=== PATIENT | female | born 1970 | race Caucasian/White ===

== ENCOUNTER → 2017-01-02 | Day surgery (SDC) | payer BC ==
[~2017-01-02] VITALS: Ht 166.4 cm; Wt 141.0 kg
[~2017-01-02] MED LIST: BECL1AER5 NAE; CALC-354 PO; CALC1CHW PO; CHOL200010 PO; CITA40TA12 PO; CYAN100048 PO; DICY20TA10 PO; HYD50 PEG; LEVO1TAB PO; MULT-506 PO; OMEP40CA36 PO; VNTHFA/IN
[2017-01-02 08:29] VITALS: BP 136/83; PULSE 67; TEMP 36.6; O2SAT 97; Ht 166.4 cm; Wt 141.0 kg
[2017-01-02 11:45] VITALS: BP 143/82; PULSE 60; TEMP 36.7; O2SAT 97
--- NOTE | 2017-01-09 13:36 | Procedure Note ---
Breath Hydrogen Test Interpretation Lactose Breath Test After ingestion of 25 grams of lactose, Hydrogen levels were measured at baseline, 60, 120 and 180 minutes for elevation. Results: A rise in hydrogen concentration of 20 ppm over baseline is considered diagnostic of lactose malabsorption Patients response Baseline 0 ppm 180 minutes 32 ppm CO2 Patient reports no symptoms. Recommendations: Return to referring Positive lactose breath test. Avoid Lactose.
== END | disposition home or self-care (01) ==
LOC: C.MTU 08:23
PROVIDERS: ATTEND Internal Medicine
DX: K58.0 Irritable bowel syndrome with diarrhea (principal)

== ENCOUNTER 2024-06-25 05:51 | Observation (INO) ==
--- NOTE | 2024-06-16 11:02 | Anesthesiology Consultation ---
Date of Service June 16, 2024 Assessment & Plan (1) Encounter for pre-operative examination: Plan - check BSG am DOS. - semaglutide instructions: Patient informed by PAT RN to stop 7 days prior to surgery. - Per marketing production specialist on 06/16/24: No known infectious disease contacts, current infectious disease symptoms in past 10 days or COVID positive test result in the past 30 days. Chart Review Chart Review: Acceptable Risk for Surgery and Patient NOT seen in Pre Admission Testing History Surgery Operation Date: 06/25/24 07:30 Proposed Procedures p Revision of Panniculectomy and - Romana Garza MD s Bilateral Brachioplasty - Romana Garza MD Height/Weight Height: 5 ft 4 in Weight: 95.254 kg Allergies Allergy/AdvReac Type Severity Reaction Status Date / Time ibuprofen Allergy Intermediate FROM MED Verified 06/16/24 10:11 RECORD acetaminophen [From Percocet] Allergy Mild Hives Verified 06/16/24 10:11 adhesive tape Allergy Mild Rash Verified 06/16/24 10:11 latex Allergy Mild Rash Verified 06/16/24 10:11 morphine Allergy Mild Hives Verified 06/16/24 10:11 ondansetron [From Zofran] Allergy Mild Hives Verified 06/16/24 10:11 oxycodone Allergy Mild FROM MED Verified 06/16/24 10:11 RECORD Sulfa (Sulfonamide Allergy Mild Hives Verified 06/16/24 10:11 Antibiotics) terfenadine Allergy Mild FROM MED Verified 06/16/24 10:11 RECORD asprin Allergy Mild Hives Uncoded 06/16/24 10:11 Medications Home Medications Medication Instructions Recorded Confirmed Last Taken acetaminophen 500 mg tablet 500 mg PO Q6H PRN Pain 07/05/23 06/16/24 Unknown (Tylenol Extra Strength) albuterol sulfate 90 mcg/actuation 2 puff inhalation Q4H PRN 07/05/23 06/16/24 Unknown aerosol inhaler sob/wheezing allopurinol 300 mg tablet 300 mg PO QAM 07/05/23 06/16/24 Unknown baclofen 10 mg tablet 10 mg PO TID PRN Pain (Scale Score 07/05/23 06/16/24 Unknown 1-3) beclomethasone dipropionate 80 1 inh inhalation BID 07/05/23 06/16/24 Unknown mcg/actuation HFA breath activated aerosol calcium 600 mg (as 1 cap PO DAILY 07/05/23 06/16/24 Unknown carbonate)-vitamin D3 5 mcg (200 unit) capsule cholecalciferol (vitamin D3) 25 25 mcg PO DAILY 07/05/23 06/16/24 Unknown mcg (1,000 unit) tablet dicyclomine 20 mg tablet 20 mg PO QID PRN Diarrhea 07/05/23 06/16/24 Unknown docusate sodium 100 mg capsule 100 mg PO BID 07/05/23 06/16/24 Unknown ferrous sulfate 325 mg (65 mg 325 mg PO DAILY 07/05/23 06/16/24 Unknown iron) tablet furosemide 40 mg tablet 40 mg PO QAM 07/05/23 06/16/24 Unknown hydroxyzine HCl 50 mg tablet 50 mg PO HS 07/05/23 06/16/24 Unknown lactase 3,000 unit tablet 3,000 unit PO TID 07/05/23 06/16/24 Unknown lactobacillus combination no.4 3 3,000 mmu cells PO DAILY 07/05/23 06/16/24 Unknown billion cell capsule (Probiotic) levothyroxine 137 mcg tablet 137 mcg PO QAM 07/05/23 06/16/24 Unknown lidocaine 4 % topical patch 1 patch topical DAILY PRN Pain 07/05/23 06/16/24 Unknown mecobalamin (vitamin B12) 1,000 1,000 mcg PO DAILY 07/05/23 06/16/24 Unknown mcg chewable tablet metformin 500 mg tablet,extended 500 mg PO BID 07/05/23 06/16/24 Unknown release 24 hr multivitamin 1 tab PO DAILY 07/05/23 06/16/24 Unknown omeprazole 20 mg capsule,delayed 20 mg PO QAM 07/05/23 06/16/24 Unknown release polyethylene glycol 3350 17 gram 17 g PO DAILY PRN Constipation 07/05/23 06/16/24 Unknown oral powder packet (Miralax) potassium gluconate 600 mg (99 mg) 600 mg PO DAILY 07/05/23 06/16/24 Unknown tablet pseudoephedrine HCl 30 mg tablet 30 mg PO Q6H PRN sinus congestion 07/05/23 06/16/24 Unknown (Sudafed) rosuvastatin 10 mg tablet 10 mg PO QAM 07/05/23 06/16/24 Unknown semaglutide 1 mg/dose (4 mg/3 mL) 3 mg subcut ONCE 07/05/23 06/16/24 Unknown subcutaneous pen injector (Ozempic) sertraline 25 mg tablet 25 mg PO DAILY 07/05/23 06/16/24 Unknown trazodone 100 mg tablet 100 mg PO HS 07/05/23 06/16/24 Unknown triamcinolone acetonide 0.5 % 1 applic topical BID PRN Rash 07/05/23 06/16/24 Unknown topical cream hydrocodone 5 mg-acetaminophen 325 1 tab PO Q4H PRN pain #18 tabs 06/09/24 06/09/24 Unknown mg tablet melatonin 10 mg tablet 10 mg PO HS 06/16/24 06/16/24 Unknown Past Medical History Medical History (Updated 06/16/24 @ 10:59 by Christine Ferris PA-C) Arthritis Asthma daily inhaler and rare use of prn- last used jan 2024 Chronic back pain Depression with anxiety Diabetes mellitus NIDDM Hx of sleep apnea resolved, no longer uses cpap Hypothyroidism Lipodystrophy Nystagmus both eyes- pt. states unsure of cause- had MRI's in past and nothing found Renal insufficiency states felt it was r/t meds- had been on celebrex for many years - follows with neph (Mery) at [facility] (will see on 06/18) Tinnitus of both ears Past Family History Family History Other Asthma COPD (chronic obstructive pulmonary disease) Cancer Diabetes Dyslipidemia Hypertension Myocardial infarction Stroke Past Surgical History Surgical History History of X2 History of carpal tunnel release of both wrists History of cholecystectomy History of esophagogastroduodenoscopy (EGD) History of gastric bypass (01/2003) 01/2003 History of hernia repair History of hysterectomy History of radiofrequency ablation (RFA) of nerve of lumbar spine (2023) History of shoulder surgery right History of throat surgery (2015) states for muscles in neck that were spasming "Cricopharyngeal spasms" - has resolved History of tonsillectomy Hx of breast reduction, elective (2004) Hx of dilation and curettage x2 Hx of exploratory laparotomy x2 Hx of plastic surgery (2004) x 2 extra skin removal from thighs, stomach/pubic area Social History Smoking Status: Former smoker Do You Dip or Chew Tobacco: No Smoking End Date: Hx Alcohol Use: Yes alcohol intake frequency: holidays/special occasions only Hx Substance Use: No substance use type: does not use Lab Results Anesthesia Preop Results Results Anesthesia Widget: WBC 7.62 K/ul (4.8-10.8) 06/09/24 Hgb 11.4 g/dl (12.0-16.0) L 06/09/24 Hct 33.8 % (37.0-47.0) L 06/09/24 Plt 228 K/uL (130-400) 06/09/24 Na 140 mmol/L (136-145) 06/09/24 K 3.9 mmol/L (3.5-5.1) 06/09/24 Cl 103 mmol/L (98-107) 06/09/24 CO2 30 mmol/L (21-32) 06/09/24 BUN 20 mg/dl (6-23) 06/09/24 Creat 1.14 mg/dl (0.6-1.2) 06/09/24 Glucose Level 100 mg/dl (70-99(Fasting)) H 06/09/24 PT 10.6 Seconds (9.0-12.0) 06/09/24 INR 1.0 (0.9-1.1) 06/09/24 HA1c 6.0 % (4.5-5.6) H 06/09/24 Testing Electrocardiogram Date: 06/09/24 Sinus bradycardia, rate 56 bpm Poor R wave progression, consider anterior WA vs lead placement vs LVH
--- OUTSIDE RECORDS SUMMARY | 2024-06-25 06:04 | External Medical Summary | Summary of Care ---
Author Name Unknown Organization [facility] Address [address] [place] [address] Phone [phone] Care Team Providers Care Mines Inspector Name Role Phone Luis Angel Chi MD Primary Care Provider Reason for Visit * Reason Comments Follow Up Encounter Details Date Type Department Care Team (Late st Contact Info) Description 06/18/2024 3:00 PM EDT Office Visit Nephrology, [address] [address] Vandana Ordonez MD [address] [place] [address] [phone] Chronic kidney disease, stage 3a (HCC)*; Vitamin D deficiency; Myalgia, multiple sites Allergies Active Allergy Reactions Criticality Noted Date Comments Aspirin 10/21/2020 Hydrocodone Hives Medium 08/22/2017 Ibuprofen 02/11/2007 Upset stomach Latex Hives 10/25/2023 Morphine Sulfate 08/27/2001 hives Oxycodone Hcl 06/24/2010 Percocet 02/04/2005 rash Sulfa Antibiotics 11/01/2001 hives Terfenadine 08/27/2001 seldane Ondansetron 05/23/2017 When taken PO, "under the tongue", pt had sores/ blisters/ulcers develop through the mouth. When given IV, no reaction noted. documented as of this encounter (statuses as of 06/18/2024) Medications [facility] VITAMIN B12 1000 MCG PO TABS Take by mouth once a week. 0 0 009 Active VITAMIN D 1000 UNIT PO CAPSIndications:Vit mattson D deficiency 2 capsule daily 30 Cap 11 010 Active Additional Information Patient taking differently:OralQWEEK, Reported on 06/18/2024 ONETOUCH DELICA LANCETS MISCIndications:Fam ruby history of diabetes mellitus test up to 4 times a day as needed 1 Box 0 011 Active MULTI-VITAMINS PO TABSIndications:Pos tgastric surgery syndromes 1 TABLET DAILY 1 Tab 0 013 Active Blood Glucose Monitoring Suppl (StackBlaze ULTRA SYSTEM) W/DEVICE KITIndications:Hypo glycemia,Postgastri c surgery syndromes Use up to four times a day as directed 1 Kit 0 016 Active Lactase 3000 UNIT Oral TabletIndications:w ith lots of dairy Take 1 Tablet by mouth in the morning and 1 Tablet at noon and 1 Tablet in the evening. Take with meals. Active Calcium Carbonate-Vitamin D 600-200 MG-UNIT CAPS Take by mouth once a week. Active Ferrous Sulfate (IRON) 325 (65 Fe) MG TABS Take by mouth daily. Active Docusate Sodium 100 MG Oral Capsule (Colace)Indications :S/P hemorrhoidectomy Take 1 Cap by mouth 2 times a day. 180 Cap 3 021 Active Potassium 99 MG Oral Tablet Take 1 Tablet by mouth in the morning. Taking once a week . 022 Active Probiotic Acidophilus BioBeads Oral Capsule Take 1 Capsule by mouth in the morning. Taking once a week . Active OneTouch Delica Lancets 30G Test blood sugars up to 4 times daily 100 Each 5 023 Active hydrOXYzine HCl 50 MG Oral TabletIndications:U rticaria TAKE 1 TABLET THREE TIMES A DAY NEEDED FOR ANXIETY 40 Tablet 27 023 Active Polyethylene Glycol 3350 17 GM Oral Packet (Miralax) Take 1 Packet by mouth in the morning. As needed. 30 Each 11 024 Active Dicyclomine HCl 20 MG Oral Tablet (Bentyl)Indications :Generalized abdominal pain Take 1 Tablet by mouth every 6 hours as needed (abdominal cramping or pain). 360 Tablet 1 024 Active OneTouch Ultra In Vitro Strip (Glucose Blood)Indications:T ype 2 diabetes mellitus with hemoglobin A1c goal of less than 7.0% ([facility]) Test blood sugars up to 4 times daily E11.9 400 Strip 1 024 Active Benzonatate 100 MG Oral Capsule (Tessalon Perles)Indications: Acute cough Take 1 Capsule by mouth 3 times a day as needed for Cough. Do not cut, crush, or chew. 50 Capsule 1 024 Active Additional Information Patient not taking.Reported on 06/18/2024 Omeprazole 20 MG Oral Capsule Delayed Release (PriLOSEC) Take 1 Capsule by mouth in the morning. 90 Capsule 3 024 Active Vitamin C 500 MG Oral Capsule Take by mouth. Taking once a week Active Allopurinol 300 MG Oral Tablet (Zyloprim)Indicatio ns:Gout of big toe TAKE 1 TABLET DAILY 90 Tablet 3 024 Active metFORMIN HCl ER 500 MG Oral Tablet Extended Release 24 Hour (Glucophage XR) TAKE 1 TABLET TWICE A DAY WITH MORNING AND EVENING MEALS 180 Tablet 3 024 Active Sertraline HCl 25 MG Oral Tablet (Zoloft)Indications :HEATHER (generalized anxiety disorder) TAKE 1 TABLET IN THE MORNING 90 Tablet 3 024 Active Furosemide 40 MG Oral Tablet (Lasix)Indications: HTN, goal below 140/90 TAKE 1 TABLET DAILY 90 Tablet 1 024 Active Lidocaine 4 % External Patch (Aspercreme)Indicat ions:Fall, initial encounter,Left-side d chest wall pain Apply patch to painful area. Patch may remain in place for up to 12 hours in any 24-hour period. No more than 1 patch should be used in a 24-hour period. 5 Patch 024 Active Levothyroxine Sodium 125 MCG Oral Tablet (Levoxyl) Take 1 Tablet by mouth daily first thing in the morning. (at least 30 min prior to breakfast or other meds) 90 Tablet 2 024 Active Levothyroxine Sodium 125 MCG Oral Tablet (Levoxyl) Take 1 Tablet by mouth daily first thing in the morning. (at least 30 min prior to breakfast or other meds) 14 Tablet 024 Active Qnasl 80 MCG/ACT Nasal Aerosol Solution (Beclomethasone Dipropionate)Indica tions:Allergic rhinitis, unspecified seasonality, unspecified trigger Administer 1 Puff into each nostril in the morning and 1 Puff before bedtime. 31.8 g 3 025 Active Albuterol Sulfate HFA 108 (90 Base) MCG/ACT Inhalation Aerosol SolutionIndications :Mild intermittent asthmatic bronchitis with acute exacerbation Inhale 2 Puffs by mouth every 4 hours as needed for Shortness of Breath or Wheezing. 18 g 1 025 Active Dexcom G6 Shift Supervisor Melting DeviceIndications:T ype 2 diabetes mellitus with hemoglobin A1c goal of less than 7.0% (HCC) Use as directed. 1 Each 025 Active Additional Information Patient not taking.Reported on 06/18/2024 Dexcom G6 SensorIndications:T ype 2 diabetes mellitus with hemoglobin A1c goal of less than 7.0% (HCC) Use as directed. 9 Each 3 025 Active Additional Information Patient not taking.Reported on 06/18/2024 Dexcom G6 TransmitterIndicati ons:Type 2 diabetes mellitus with hemoglobin A1c goal of less than 7.0% (HCC) Use as directed. 6 Each 3 025 Active Additional Information Patient not taking.Reported on 06/18/2024 Baclofen 10 MG Oral Tablet (Lioresal)Indicatio ns:Primary localized osteoarthrosis of lower leg, unspecified laterality TAKE 1 TABLET THREE TIMES A DAY NEEDED FOR MUSCLE SPASMS 270 Tablet 025 Active traZODone HCl 100 MG Oral Tablet (Desyrel) Take 1 Tablet by mouth at bedtime. 90 Tablet 1 025 Active Ozempic (2 MG/DOSE) 8 MG/3ML Subcutaneous Solution Pen-injector (Semaglutide (2 MG/DOSE))Indication s:Type 2 diabetes mellitus with hemoglobin A1c goal of less than 7.0% (HCC) Inject 2 mg under the skin once a week. 9 mL 3 025 Active Rosuvastatin Calcium 10 MG Oral Tablet (Crestor) TAKE 1 TABLET IN THE MORNING 90 Tablet 3 024 2024 Discontinued documented as of this encounter (statuses as of 06/18/2024) Active Problems Problem Noted Date Diagnosed Date Chronic kidney disease, stage 3a 10/29/2023 Overview: Per CKD protocol Body mass index (BMI) of 40.0 to 44.9 in adult 1 Overview: Per Obesity protocol - Per Obesity protocol - Morbid obesity due to excess calories 08/30/2022 Type 2 diabetes mellitus wit h hemoglobin A1c goal of less than 7.0% 01/28/2019 FRANCHESKA on CPAP 12/15/2017 Overview (12/15/2017): Mild, autocpap Lactose intolerance 01/31/2017 S/P gastric bypass 04/06/2014 Intermittent asthma with reliever use up to twic e per week 12/04/2012 Osteoarthrosis, localized, primary, involving lo wer leg 10/07/2009 Overview (12/20/2020): ICD-10 update of inactive term Degeneration of lumbosacral intervertebral disc 10/07/2009 Myalgia and myositis 10/07/2009 Postartificial menopausal syndrome 05/12/2009 NAFLD (nonalcoholic fatty liver disease) 010 Overview (05/12/2009): Ct 04/28 Acquired acanthosis nigricans 05/12/2009 Vitamin D deficiency 12/31/2008 Overview (05/08/2009): 04/28--DrSunderlin --labs--tsh , ft4 stable, VD 24--chg VD q2wks Dyx90--wg cbc, bmp, fbs, lft, lipid x hdl 39, b12, vd-23, insulin--17.9(obesity) --st vd 50 k wkly x 3 mths, then qmth/ Postgastric surgery syndrome 12/29/2008 Overview (12/18/2016): 12/29--EGD neg ICD-10 update of inactive term Krystal's thyroiditis 02/25/2008 Overview (12/04/2012): Erick Gastelum since 2011 NONTOX UNINODULAR GOITER 02/25/2008 Depression with anxiety HTN, goal below 140/90 IBS (irritable bowel syndrome) Exercise-induced asthma documented as of this encounter (statuses as of 06/18/2024) Resolved Problems Problem Noted Date Diagnosed Date Resolved Date Gout of big toe 12/04/2019 06/03/2020 Body mass index (BMI) of 45. 0 to 49.9 in adult 10/27/2019 12/28/2022 Overview: Per Obesity protocol - Body mass index (BMI) of 50. 0 to 59.9 in adult 12/18/2016 10/30/2019 Overview: Per Obesity protocol #1 Colon polyps 12/28/2012 11/29/2018 Overview (12/28/2012): 12/29--One 7 mm polyp in the transverse colon. Resected and retrieved. - Two 2 to 4 mm polyps in the descending colon. Resected and retrieved. - Internal hemorrhoids. Colon bx-- Snoring 12/04/2012 04/29/2013 Diarrhea 08/20/2012 12/23/2017 Overview (08/20/2012): 07/29--stool c/s;o/p neg--UGI w SBFT -nl-ex rapid sm bowel transit ----add metamucil to Bulk stools. Other screening mammogram 01/22/2012 Overview (01/13/2013): 01/10/13 Bilat Mammo/LH: benign 01/09/12 Bilat Mammo/LH: benign Anxiety state 11/03/2010 11/29/2018 Overview (12/04/2012): 12/04/2012--see notes-/tlc-b filled 62 tabs 10/23/12. 03/01/2012--No rec [facility]-called Ph---Pt did get Rx filled -xanax 0.5mg--90 tabs 10/05/11 [facility] and at [facility]-11/06/11;01/06/12;02/01/12. PRN Xanax - usually takes one pill every evening Shoulder joint pain 07/05/2010 04/29/19 14 Overview (07/05/2010): 06/24/10: EMG/Dr Camp: very mild R>L CTS. No evidence of R cervical radiculopathy. Family history of diabetes mellitus 05/12/2009 11/29/2018 Overview (05/12/2009): father Other allergic rhinitis 12/29/200803/19 Overview (01/09/2017): On allergy inj [place] 09/27 ICD-10 update of inactive term S/P laparoscopic cholecystectomy 12/25/2006 04/29/2013 Overview (12/04/2012): : US;Mild nonspecific dilatation of the gallbladder. This may be related to fasting.---lap latonya Obesity, Class III, BMI 40-4 9.9 (morbid obesity) 04/23/2002 12/21/2016 Hypothyroid 04/06/2014 documented as of this encounter (statuses as of 06/18/2024) Immunizations Name Administration Dates Next Due COVID-19 mRNA, LNP-s, No Pre serve, 2-Dose Series (FusionStorm) 01/08/2021,07/03/2020,06/12/2020 COVID-19, LNP-s, No Preserve , Shaq-sucrose, Ages 12+ (Pfizer) 09/23/2021 Covid-19, Mrna, Lnp-s, Pf, B ivalent, 30 Mcg, IM, 12 yrs and above (FusionStorm) 09/06/2022 PPD 11/07/2010 Pneumococcal Conjugate Vacci ne, 20-valent ([id number]) 08/30/2022 Pneumococcal Polysaccharide PPV23 (Pneumovax) 12/23/2013 Seasonal Influenza Vac., MDV , IM, 0.5 mL (Fluzone) 12/09/2013,12/04/2012,02/19/2012,02/17 Seasonal Influenza, PF, 6 M & above, IM , (FluLaval or Fluzone) 12/01/2022,12/10/2020,12/04/2019,11/29,12/07/2017 Seasonal Influenza, Quadriva lent, No Preserve, IM 11/27/2016,12/30/2014 TD, Preservative Free 08/30/2022,03/12/2005 TDAP (age 10 and older)(Boostrix) 09/28/2011 Zoster Vaccine Recombinant (Shingrix) 08/03/2020 ,04/15/2020 documented as of this encounter Social History Tobacco Use Types Packs/Day Years Used Date Smoking Tobacco: Former Cigarettes Q uit: 01/23/1989 Smokeless Tobacco: Never Tobacco Cessation:Counseling Given: Not Answered Comments:smoked for 1 year when she was 16 Alcohol Use Standard Drinks/Week Comments Yes 0 (1 standard drink = 0.6 oz pure alcohol) Less Approx 1 glass of wine/mo- occas PHQ-2 Answer Date Recorded PHQ Adult Total Score 0 06/03/2020 Hunger Vital Sign Answer Date Recorded Within the past 12 months, y ou worried that your food would run out before you got the money to buy more. Never true 02/22/20 22 Within the past 12 months, t he food you bought just didn't last and you didn't have money to get more. Never true 02/21/2022 Comments No Sex and Gender Information Value Date Recorded Sex Assigned at Female 06/04/2018 3:48 PM EDT Legal Sex Female 5:53 AM EST Gender Identity Female 06/04/2018 3:48 PM EDT Sexual Orientation Straight 06/04/2018 3: 48 PM EDT Occupation Industry Job Start Date Job End Date [employer] Not on file Not on file Not on file documented as of this encounter Last Filed Vital Signs Vital Sign Reading Time Taken Comments Blood Pressure 109/84 06/18/2024 3:04 PM EDT Pulse 77 06/18/2024 3:04 PM EDT Temperature - - Respiratory Rate - - Oxygen Saturation - - Inhaled Oxygen Concentration - - Weight 97.7 kg (215 lb 4.8 oz) 06/18/2024 3:04 P M EDT Height - - Body Mass Index 36.96 01/11/2023 7:57 AM EDT documented in this encounter Progress Notes * Vandana Ordonez MD - 06/18/2024 3:08 PM EDT REASON FOR VISIT: CKD HPI: Bessie Fitzgerald is a 53 year old female seen in follow-up. Past medical history of hypertension, fatty liver, gout, obesity, depression, hypothyroidism, IBS and CKD stage 3 baseline creatinine of 1.2 since 2019 3. Creatinine increased 2 months ago to 3.4 at the time her calcium was 10.9. Creatinine is now down to 1.5 with calcium improving to 10.1. Patient also has hypokalemia with potassium of 3.4. She is on chronic celebrex for athritis. She had gastric bypass in 2002, peak weight of 400 but lost a lot. Now down to 195 on ozempic. No recent acute gout attack. Last visit was December 2023. She has chronic muscle pain in the shoulders, thighs and back. Using tylenol but does not help. No nSAIDs. No acute gout. Patient is going for excess skin removal at [facility]. No shortness of breath or leg swelling. Recent creatinine 1.4, calcium 9.9. Blood pressure is controlled. Past Medical History: Diagnosis Date Depression with anxiety Eczema Exercise-induced asthma HTN, goal below 140/90 Hypothyroid IBS (irritable bowel syndrome) INFORMATION history of stricture of muscles in the esophagus. Has had surgery to release the stricture Iron deficiency Lactose intolerance 01/31/2017 Lupus pt has been tested, no definitive dx Morbid obesity, BMI not known (HCC) Motion sickness Psoriasis Sleep apnea very minimal per pt Vitamin D deficiency Review of Systems: General ROS: negative for - chills or fever Psychological ROS: negative for - mood swings ENT ROS: negative for - nasal congestion or nasal discharge Endocrine ROS: negative Respiratory ROS: no cough, shortness of breath, or wheezing Cardiovascular ROS: no chest pain or dyspnea on exertion Gastrointestinal ROS: no abdominal pain, change in bowel habits, or black or bloody stools Genito-Urinary ROS: no dysuria, trouble voiding, or hematuria Musculoskeletal ROS: negative for - muscle pain Neurological ROS: no TIA or stroke symptoms Dermatological ROS: negative for rash Family History Problem Relation Name Age of Onset Breast Cancer Mother Other (Diabetes., HTN, hi chol) Mother divertics Other (Diabetes, HTN, CVA) Father Crohns,colon polyps Endocrine Disorder Sister thyroid ds No Past Hx Sister Diabetes Brother TIA Other (Hypertension,TIA) Brother Diabetes Grandmother (Maternal) Heart Disorder Grandmother (Maternal) Social History Socioeconomic History Marital status: Spouse name: sIaiah Number of children: 2 Years of education: 12 Highest education level: Not on file Occupational History 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 Employer: [employer] Comment: [employer] Tobacco Use Smoking status: Former Current packs/day: 0.00 Types: Cigarettes Quit date: 01/23/1989 Years since quittin.4 Smokeless tobacco: Never Tobacco comments: smoked for 1 year when she was 16 Vaping Use Vaping status: Never Used Substance and Sexual Activity Alcohol use: Yes Alcohol/week: 0.0 standard drinks of alcohol Comment: Less Approx 1 glass of wine/mo- occas Drug use: No Sexual activity: Yes Partners: Male control/protection: Surgical Other Topics Concern Service Not Asked Blood Transfusions Not Asked Caffeine Concern Not Asked Occupational Exposure Not Asked Hobby Hazards Not Asked Sleep Concern Not Asked Stress Concern Not Asked Weight Concern Not Asked Special Diet Not Asked Back Care Not Asked Exercise Not Asked Bike Helmet Not Asked Seat Belt Yes Self-Exams Not Asked Social History Narrative Not on file Social Needs Financial Resource Strain: Not on file Food Insecurity: No Food Insecurity (02/21/2022) Hunger Vital Sign Worried About Running Out of Food in the Last Year: Never true Ran Out of Food in the Last Year: Never true Transportation Needs: Not on file Social Connections: Not on file Housing Stability: Not on file Current Outpatient Medications Medication Sig Dispense Refill [facility] VITAMIN B12 1000 MCG PO TABS Take by mouth once a week. 0 0 VITAMIN D 1000 UNIT PO CAPS 2 capsule daily (Patient taking differently: Take by mouth once a week.) 30 Cap 11 ONETOUCH DELICA LANCETS MISC test up to 4 times a day as needed 1 Box 0 MULTI-VITAMINS PO TABS 1 TABLET DAILY 1 Tab 0 Blood Glucose Monitoring Suppl (StackBlaze ULTRA SYSTEM) W/DEVICE KIT Use up to four times a day as directed 1 Kit 0 Lactase 3000 UNIT Oral Tablet Take 1 Tablet by mouth in the morning and 1 Tablet at noon and 1 Tablet in the evening. Take with meals. Calcium Carbonate-Vitamin D 600-200 MG-UNIT CAPS Take by mouth once a week. Ferrous Sulfate (IRON) 325 (65 Fe) MG TABS Take by mouth daily. Docusate Sodium 100 MG Oral Capsule (Colace) Take 1 Cap by mouth 2 times a day. 180 Cap 3 Potassium 99 MG Oral Tablet Take 1 Tablet by mouth in the morning. Taking once a week . Probiotic Acidophilus BioBeads Oral Capsule Take 1 Capsule by mouth in the morning. Taking once a week . OneTouch Delica Lancets 30G Test blood sugars up to 4 times daily 100 Each 5 hydrOXYzine HCl 50 MG Oral Tablet TAKE 1 TABLET THREE TIMES A DAY NEEDED FOR ANXIETY 40 Tablet 27 Polyethylene Glycol 3350 17 GM Oral Packet (Miralax) Take 1 Packet by mouth in the morning. As needed. 30 Each 11 Dicyclomine HCl 20 MG Oral Tablet (Bentyl) Take 1 Tablet by mouth every 6 hours as needed (abdominal cramping or pain). 360 Tablet 1 OneTouch Ultra In Vitro Strip (Glucose Blood) Test blood sugars up to 4 times daily E11.9 400 Strip1 Omeprazole 20 MG Oral Capsule Delayed Release (PriLOSEC) Take 1 Capsule by mouth in the morning. 90Capsule 3 Vitamin C 500 MG Oral Capsule Take by mouth. Taking once a week Allopurinol 300 MG Oral Tablet (Zyloprim) TAKE 1 TABLET DAILY 90 Tablet 3 metFORMIN HCl ER 500 MG Oral Tablet Extended Release 24 Hour (Glucophage XR) TAKE 1 TABLET TWICE A DAY WITH MORNING AND EVENING MEALS 180 Tablet 3 Sertraline HCl 25 MG Oral Tablet (Zoloft) TAKE 1 TABLET IN THE MORNING 90 Tablet 3 Furosemide 40 MG Oral Tablet (Lasix) TAKE 1 TABLET DAILY 90 Tablet 1 Lidocaine 4 % External Patch (Aspercreme) Apply patch to painful area. Patch may remain in place for up to 12 hours in any 24-hour period. No more than 1 patch should be used in a 24-hour period. 5 Patch 0 Levothyroxine Sodium 125 MCG Oral Tablet (Levoxyl) Take 1 Tablet by mouth daily first thing in the morning. (at least 30 min prior to breakfast or other meds) 90 Tablet 2 Levothyroxine Sodium 125 MCG Oral Tablet (Levoxyl) Take 1 Tablet by mouth daily first thing in the morning. (at least 30 min prior to breakfast or other meds) 14 Tablet 0 Qnasl 80 MCG/ACT Nasal Aerosol Solution (Beclomethasone Dipropionate) Administer 1 Puff into each nostril in the morning and 1 Puff before bedtime. 31.8 g 3 Albuterol Sulfate HFA 108 (90 Base) MCG/ACT Inhalation Aerosol Solution Inhale 2 Puffs by mouth every 4 hours as needed for Shortness of Breath or Wheezing. 18 g 1 Baclofen 10 MG Oral Tablet (Lioresal) TAKE 1 TABLET THREE TIMES A DAY NEEDED FOR MUSCLE SPASMS 270 Tablet 0 traZODone HCl 100 MG Oral Tablet (Desyrel) Take 1 Tablet by mouth at bedtime. 90 Tablet 1 Ozempic (2 MG/DOSE) 8 MG/3ML Subcutaneous Solution Pen-injector (Semaglutide (2 MG/DOSE)) Inject 2 mg under the skin once a week. 9 mL 3 Benzonatate 100 MG Oral Capsule (Tessalon Perles) Take 1 Capsule by mouth 3 times a day as needed for Cough. Do not cut, crush, or chew. (Patient not taking: Reported on 06/18/2024) 50 Capsule 1 Dexcom G6 Shift Supervisor Melting Device Use as directed. (Patient not taking: Reported on 06/18/2024) 1 Each 0 Dexcom G6 Sensor Use as directed. (Patient not taking: Reported on 06/18/2024) 9 Each 3 Dexcom G6 Transmitter Use as directed. (Patient not taking: Reported on 06/18/2024) 6 Each 3 No current facility-administered medications for this visit. Filed Vitals: 06/18/24 1504 BP: 109/84 Pulse: 77 Weight: 97.7 kg (215 lb 4.8 oz) PHYSICAL EXAM: GENERAL: Alert, in no acute distress. EYES: PERRL, conjunctivae anicteric. ENT: Mucous membranes moist, oropharynx clear. NECK: Supple, no JVD. LYMPH: No cervical or supraclavicular lymphadenopathy. LUNGS: Clear to auscultation bilaterally, no respiratory distress. CARDIAC: Regular rate and rhythm, normal S1/S2, no murmurs, rubs, or gallops. ABDOMEN: Soft, non-tender, non-distended, bowel sounds present. EXT/MSK: No clubbing, cyanosis, or edema. SKIN: No rash, no jaundice. NEURO: No tremor, no asterixis. LABS/STUDIES: Recent Labs Units 02/25/24 0818 12/06/23 0911 11/16/23 1249 10/08/23 1114 SODIUM - [facility] mmol/L 141 139 137 140 POTASSIUM - [facility] mmol/L 4.5 3.4* 3.6 3.2* CHLORIDE - [facility] mmol/L 101 98 91* 99 CO2 - [facility] mmol/L 29 28 29 25 BUN - [facility] mg/dL 22* 27* 59* 34* CREATININE - [facility] mg/dL 1.4* 1.5* 3.4* 1.6* Recent Labs Units 11/16/23 1249 10/08/23 1114 08/30/22 1555 WBC K/uL 8.22 8.03 9.43 HGB g/dL 12.2 12.3 14.2 PLT K/uL 249 285 304 Recent Labs Units 02/25/24 0818 12/06/23 0911 11/16/23 1249 10/08/23 1114 08/30/22 1555 CALCIUM - [facility] mg/dL 9.9 10.1 10.9* 10.6* 10.4* PHOSPHORUS - [facility] mg/dL -- -- 3.6 -- -- 25-HYDROXY VITAMIN D - [facility] ng/mL 33 -- -- 53 28 Recent Labs Units 05/30/24 1327 10/08/23 1114 02/26/23 0839 HEMOGLOBIN A1C - [facility] % 6.1* 6.7* 7.7* No results for input(s): "MICROALBUMIN", "PROCRRATIO" in the last 06710 hours. ASSESSMENT AND PLAN Bessie was seen today for follow up. Diagnoses and all orders for this visit: Chronic kidney disease, stage 3a (HCC) Patient with CKD stage IIIA due to hypertension, diabetes and chronic NSAID use. Recent creatinine of 1.4 which is her baseline. Prior baseline of around 1.1- 1.2. Recent A1c of 6.1. Discussed need for optimal glycemic control to slow progressive CKD. She knows to avoid NSAIDs. She can use Tylenol as needed for pain. Repeat BMP prior to next office visit. HTN, goal below 140/90 Blood pressure is controlled. No changes. Hyperuricemia She will continue allopurinol. Will check uric acid next month. Renal osteodystrophy PTH was high recently. She will continue calcium and vitamin-D supplements Myalgia, multiple sites Will stop rosuvastatin to see if it is the cause of her myalgia. Patient has lost significant amount of weight and has normal cholesterol panel Vandana Ordonez MD Nephrology, [address] [address] This note was generated with the help of voice recognition software. Please excuse for errors. documented in this encounter Nursing Notes * Katy Whitman LPN - 06/18/2024 3:04 PM EDT Chief Complaint Patient presents with Follow Up documented in this encounter Plan of Treatment Upcoming Encounters Date Type Department Care Team (Late st Contact Info) Description 08/14/2024 7:00 AM EDT [facility] [phone] Luis Angel [facility] [place] [id number] 08/19/2024 11:00 AM EDT [address] [phone] 12/23/2024 10:20 AM EDT Office Visit Nephrology, [address] [place] [address] Vandana Ordonez MD [address] [place] [address] [place] [phone] Scheduled Procedures Name Priority Associated Diagnoses Date/Ti me COLONOSCOPY FLEXIBLE PROXIMA L DIAGNOSTIC Recall History of colonic polyps Health Maintenance Due Date Last Done Comments Depression Monitoring 1981 Hepatitis B Vaccine (1 of 3 - 19+ 3-dose series) 1988 Cologuard 2014 Fecal Occult Blood Test 2014 Sigmoidoscopy 2014 COVID-19 Vaccine ( season) 2023 09/06/2022, 09/23/2021, 01/08/2021, Additional history exists Mammogram 03/15/2024 03/15/2023, 02/17, 03/04/2021, Additional history exists GFR 08/25/2024 02/25/2024, 11/17, 11/16/2023, Additional history exists Albumin/Creatinine Ratio 10/07/2024 024, 08/30/2022, 06/09/2021, Additional history exists Diabetic Eye Exam 10/10/2024 10/11/2023, , 05/06/2021, Additional history exists Diabetic Foot Exam 10/24/2024 10/25/2023, 0 08/30/2022, 06/09/2021, Additional history exists CKD HGB USE SMARTSET 71854 11/15/202411/15, 11/16/2023, 10/08/2023, Additional history exists CKD PHOS USE SMARTSET 39538 11/15/2024 11/16/2023 Influenza Vaccine (FLU shot) (Season Ended) 2024 12/01/2022, 12/10/2020, 12/04/2019, Additional history exists HbA1c 11/30/2024 05/30/2024, 09/17, 02/26/2023, Additional history exists TSH 12/05/2024 12/06/2023, 10/19, 10/08/2023, Additional history exists Colonoscopy 08/18/2025 08/18/2020, 04/2020, 05/24/2017, Additional history exists Colorectal Cancer Screening 08/18/2025 Lipid Panel 10/07/2028 10/08/2023, 08/17, 09/23/2021, Additional history exists DTap/Tdap Vaccines (3 - Td or Tdap) 08/30/2032 08/30/2022, 09/28/2011, 03/12/2005 Hepatitis C Screening Completed 08/03/2020 Zoster Vaccines Completed 08/03/2020, 04/15/2020 RETIRED - COLONOSCOPY-EVERY 5 YRS AGES 18-100 Discontinued 08/18/2020, 08/18/2020, 05/24/2017, Additional history exists Pneumococcal Vaccine: 50+ Years Completed 08/30/2022, 12/23/2013 HPV (Gardasil) Vaccine Aged Out No lo nger eligible based on patient's age to complete this topic MENINGOCOCCAL (MENACTRA/MENVEO) Aged Out No longer eligible based on patient's age to complete this topic Meningitis B Vaccine (Bexsero/Trumemba) Aged Out No longer eligible based on patient's age to complete this topic documented as of this encounter Medical Devices Not on filedocumented as of this encounter Visit Diagnoses Diagnosis Chronic kidney disease, stage 3a (HCC)- Primary Vitamin D deficiency Unspecified vitamin D deficiency Myalgia, multiple sites documented in this encounter Advance Directives * Full Code (Latest Code Status on File) Date Activated Date Inactivated Comments 01/08/2018 3:53 PM 01/09/2018 11:32 PM This orde r reflects the patients wishes and were consensually agreed upon. * Full Code Date Activated Date Inactivated Comments 08/22/2017 8:19 AM 08/22/2017 1:00 PM This order ref lects the patients wishes and were consensually agreed upon. Question Answer Comments Discussion of Advance Directives occurred with: Not Discussed Care Teams Mines Inspector Relationship Specialty Start Date End Date Luis Angel Chi MD [address] [place] [id number] PCP - General Family Medicine 05/30/24 documented as of this encounter
--- OUTSIDE RECORDS SUMMARY | 2024-06-25 06:04 | External Medical Summary | Summary of Care ---
Author Name Unknown Organization [facility] Address [address] [place] [address] Phone [phone] Care Team Providers Care Senior Solutions Consultant Name Role Phone Luis Angel Chi MD Primary Care Provider Reason for Visit * Reason Comments eRx-Medication Refill Encounter Details Date Type Department Care Team (Late st Contact Info) Description 06/23/2024 Refill [facility] [address] [place] [address] Luis Angel Chi MD [address] [place], [place] [phone] HTN, goal below 140/90 Allergies Active Allergy Reactions Criticality Noted Date [...] as of this encounter (statuses as of 06/24/2024) Medications [facility] VITAMIN B12 1000 MCG PO [...] 0 013 Active Blood Glucose Monitoring Suppl ([place] ULTRA SYSTEM) W/DEVICE KITIndications:Hypo glycemia,Postgastri c surgery [...] times daily 100 Each 5 023 Active Polyethylene Glycol 3350 17 GM [...] hemoglobin A1c goal of less than 7.0% ([facility]) Test blood sugars up to 4 times daily E11.9 400 Strip 1 Active Benzonatate 100 MG Oral Capsule (Tessalon [...] THE MORNING 90 Tablet 3 024 Active Lidocaine 4 % External Patch [...] 18 g 1 025 Active Dexcom G6 Litigation Legal Assistant DeviceIndications:T ype 2 diabetes mellitus with hemoglobin [...] a week. 9 mL 3 025 Active hydrOXYzine HCl 50 MG Oral TabletIndications:U rticaria TAKE 1 TABLET THREE TIMES A DAY NEEDED FOR ANXIETY 40 Tablet 5 025 Active Furosemide 40 MG Oral Tablet (Lasix)Indications: HTN, goal below 140/90 TAKE 1 TABLET DAILY 90 Tablet 1 025 Active Furosemide 40 MG Oral Tablet (Lasix)Indications: HTN, goal below 140/90 TAKE 1 TABLET DAILY 90 Tablet 1 024 2024 Discontinued documented as of this encounter (statuses as of 06/24/2024) Active Problems Problem Noted Date Diagnosed Date [...] , ft4 stable, VD 24--chg VD q2wks Irv83--zf cbc, bmp, fbs, lft, lipid x hdl [...] as of this encounter (statuses as of 06/24/2024) Resolved Problems Problem Noted Date Diagnosed Date [...] rhinitis 12/29/200803/19 Overview (01/09/2017): On allergy inj DrVakharia 09/27 ICD-10 update of inactive term S/P laparoscopic cholecystectomy 12/25/2006 04/29/2013 Overview (12/04/2012): : US;Mild nonspecific dilatation of the gallbladder. This may be related to fasting.---lap latonya Obesity, Class III, BMI 40-4 9.9 (morbid obesity) 04/23/2002 12/21/2016 Hypothyroid 04/06/2014 documented as of this encounter (statuses as of 06/24/2024) Immunizations Name Administration Dates Next Due COVID-19 mRNA, LNP-s, No Pre serve, 2-Dose Series (Celmatix) 01/08/2021,07/03/2020,06/12/2020 COVID-19, LNP-s, No Preserve , Shaq-sucrose, Ages 12+ (Pfizer) 09/23/2021 Covid-19, Mrna, Lnp-s, Pf, B ivalent, 30 Mcg, IM, 12 yrs and above (Celmatix) 09/06/2022 PPD 11/07/2010 Pneumococcal Conjugate Vacci ne, 20-valent (Lsodacw29) 08/30/2022 Pneumococcal Polysaccharide PPV23 (Pneumovax) 12/23/2013 Seasonal [...] Cigarettes Q uit: 01/23/1989 Smokeless Tobacco: Never Comments:smoked for 1 year w hen she was 16 Alcohol Use Standard Drinks/Week [...] 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 Not on file Not on file documented as of this encounter Miscellaneous Notes * [facility] 5:00 PM EDTSigned Prescriptions: Disp Refills Furosemide 40 MG Oral Tablet (Lasix) 90 Tab*1 Sig: TAKE 1 TABLETDAILYAuthorizing Provider: LUIS ANGEL CHI User: BARTOLO FLOREZ documented in this encounter Plan of Treatment Upcoming Encounters Date Type Department Care Team (Late st Contact Info) Description 08/14/2024 7:00 AM EDT Office Visit [facility] [address] [place] [phone] Luis Angel Chi MD [address] [facility] [place] [phone] 08/19/2024 11:00 AM EDT Appointment Radiology, [facility] [address] [place] [address] 12/23/2024 10:20 AM EDT Office Visit Nephrology, [address] [place] [address] Vandana Ordonez MD [address] [place] [address] Scheduled Procedures Name Priority Associated Diagnoses Date/Ti [...] Additional history exists CKD HGB USE SMARTSET 20858 11/15/202411/15, 11/16/2023, 10/08/2023, Additional history exists CKD PHOS USE SMARTSET 24857 11/15/2024 11/16/2023 Influenza Vaccine (FLU shot) (Season Ended) 2024 12/01/2022, 12/10/2020, 12/04/2019, Additional history exists HbA1c 11/30/2024 05/30/2024, 0704/2023, 02/26/2023, Additional history exists TSH 12/05/2024 12/06/2023, 10/19, 10/08/2023, Additional history exists Colonoscopy 08/18/2025 08/18/2020, 06/0 04/2020, 05/24/2017, Additional history exists Colorectal Cancer [...] as of this encounter Visit Diagnoses Diagnosis HTN, goal below 140/90 Unspecified essential hypertension documented in this encounter Advance Directives * [...] Directives occurred with: Not Discussed Care Teams Senior Solutions Consultant Relationship Specialty Start Date End Date Luis Angel Chi MD [address] [phone] PCP - General Family Medicine 05/30/24 documented as of this encounter
--- OUTSIDE RECORDS SUMMARY | 2024-06-25 06:04 | External Medical Summary | Summary of Care ---
Author Name Unknown Organization [facility] Address [address] [place] [address] Phone [phone] Care Team Providers Care Instructor Of Education Name Role Phone Luis Angel Chi MD Primary Care Provider Reason for Visit * Reason Onset Date Comments Medication Refill 06/19/2024 Encounter Details Date Type Department Care Team (Late st Contact Info) Description 06/19/2024 Refill [facility] [address] [facility] [place] [address] Luis Angel [facility] MD [address] [facility] [place] [phone] Urticaria Allergies Active Allergy Reactions Criticality Noted Date [...] as of this encounter (statuses as of 06/19/2024) Medications [facility]S VITAMIN B12 1000 MCG PO TABS Take by mouth once a week. 0 0 12/30/19 09 Active VITAMIN D 1000 UNIT PO CAPSIndications:Vit mattson D deficiency 2 capsule daily 30 Cap 11 01/17/20 10 Active Additional Information Patient taking differently:OralQWEEK, Reported on 06/18/2024 ONETOUCH DELICA LANCETS MISCIndications:Fam ruby history of diabetes mellitus test up to 4 times a day as needed 1 Box 0 01/17/20 11 Active MULTI-VITAMINS PO TABSIndications:Pos tgastric surgery syndromes 1 TABLET DAILY 1 Tab 0 12/05/19 13 Active Blood Glucose Monitoring Suppl ([employer] ULTRA SYSTEM) W/DEVICE KITIndications:Hypo glycemia,Postgastri c surgery syndromes Use up to four times a day as directed 1 Kit 0 10/05/19 16 Active Lactase 3000 UNIT Oral TabletIndications:w ith [...] 2 times a day. 180 Cap 3 04/05/19 21 Active Potassium 99 MG Oral Tablet Take 1 Tablet by mouth in the morning. Taking once a week . 02/01/20 22 Active Probiotic Acidophilus BioBeads Oral Capsule Take 1 Capsule by mouth in the morning. Taking once a week . Active OneTouch Delica Lancets 30G Test blood sugars up to 4 times daily 100 Each 5 09/26/19 23 Active Polyethylene Glycol 3350 17 GM Oral Packet (Miralax) Take 1 Packet by mouth in the morning. As needed. 30 Each 11 04/23/19 24 Active Dicyclomine HCl 20 MG Oral Tablet (Bentyl)Indications :Generalized abdominal pain Take 1 Tablet by mouth every 6 hours as needed (abdominal cramping or pain). 360 Tablet 1 06/19/19 24 Active OneTouch Ultra In Vitro Strip (Glucose Blood)Indications:T ype 2 diabetes mellitus with hemoglobin A1c goal of less than 7.0% ([facility]) Test blood sugars up to 4 times daily E11.9 400 Strip 1 06/18/19 24 Active Benzonatate 100 MG Oral Capsule (Tessalon Perles)Indications: Acute cough Take 1 Capsule by mouth 3 times a day as needed for Cough. Do not cut, crush, or chew. 50 Capsule 1 07/31/19 24 Active Additional Information Patient not taking.Reported on 06/18/2024 Omeprazole 20 MG Oral Capsule Delayed Release (PriLOSEC) Take 1 Capsule by mouth in the morning. 90 Capsule 3 08/19/19 24 Active Vitamin C 500 MG Oral Capsule Take by mouth. Taking once a week Active Allopurinol 300 MG Oral Tablet (Zyloprim)Indicatio ns:Gout of big toe TAKE 1 TABLET DAILY 90 Tablet 3 11/21/19 24 Active metFORMIN HCl ER 500 MG Oral Tablet Extended Release 24 Hour (Glucophage XR) TAKE 1 TABLET TWICE A DAY WITH MORNING AND EVENING MEALS 180 Tablet 3 11/25/19 24 Active Sertraline HCl 25 MG Oral Tablet (Zoloft)Indications :HEATHER (generalized anxiety disorder) TAKE 1 TABLET IN THE MORNING 90 Tablet 3 12/05/19 24 Active Furosemide 40 MG Oral Tablet (Lasix)Indications: HTN, goal below 140/90 TAKE 1 TABLET DAILY 90 Tablet 1 12/26/19 24 Active Lidocaine 4 % External Patch (Aspercreme)Indicat ions:Fall, initial encounter,Left-side d chest wall pain Apply patch to painful area. Patch may remain in place for up to 12 hours in any 24-hour period. No more than 1 patch should be used in a 24-hour period. 5 Patch 01/03/20 24 Active Levothyroxine Sodium 125 MCG Oral Tablet (Levoxyl) Take 1 Tablet by mouth daily first thing in the morning. (at least 30 min prior to breakfast or other meds) 90 Tablet 2 03/14/20 24 Active Levothyroxine Sodium 125 MCG Oral Tablet (Levoxyl) Take 1 Tablet by mouth daily first thing in the morning. (at least 30 min prior to breakfast or other meds) 14 Tablet 03/14/20 24 Active Qnasl 80 MCG/ACT Nasal Aerosol Solution (Beclomethasone Dipropionate)Indica tions:Allergic rhinitis, unspecified seasonality, unspecified trigger Administer 1 Puff into each nostril in the morning and 1 Puff before bedtime. 31.8 g 3 03/28/19 25 Active Albuterol Sulfate HFA 108 (90 Base) MCG/ACT Inhalation Aerosol SolutionIndications :Mild intermittent asthmatic bronchitis with acute exacerbation Inhale 2 Puffs by mouth every 4 hours as needed for Shortness of Breath or Wheezing. 18 g 1 04/02/19 25 Active Dexcom G6 Genetic Supervisor DeviceIndications:T ype 2 diabetes mellitus with hemoglobin A1c goal of less than 7.0% (HCC) Use as directed. 1 Each 04/09/19 25 Active Additional Information Patient not taking.Reported on 06/18/2024 Dexcom G6 SensorIndications:T ype 2 diabetes mellitus with hemoglobin A1c goal of less than 7.0% (HCC) Use as directed. 9 Each 04/09/19 Active Additional Information Patient not taking.Reported on 06/18/2024 Dexcom G6 TransmitterIndicati ons:Type 2 diabetes mellitus with hemoglobin A1c goal of less than 7.0% (HCC) Use as directed. 6 Each 04/09/19 25 Active Additional Information Patient not taking.Reported on 06/18/2024 Baclofen 10 MG Oral Tablet (Lioresal)Indicatio ns:Primary localized osteoarthrosis of lower leg, unspecified laterality TAKE 1 TABLET THREE TIMES A DAY NEEDED FOR MUSCLE SPASMS 270 Tablet 04/18/19 25 Active traZODone HCl 100 MG Oral Tablet (Desyrel) Take 1 Tablet by mouth at bedtime. 90 Tablet 1 06/05/19 25 Active Ozempic (2 MG/DOSE) 8 MG/3ML Subcutaneous Solution Pen-injector (Semaglutide (2 MG/DOSE))Indication s:Type 2 diabetes mellitus with hemoglobin A1c goal of less than 7.0% (HCC) Inject 2 mg under the skin once a week. 9 mL 3 06/05/19 25 Active hydrOXYzine HCl 50 MG Oral TabletIndications:U rticaria TAKE 1 TABLET THREE TIMES A DAY NEEDED FOR ANXIETY 40 Tablet 5 06/20/19 25 Active hydrOXYzine HCl 50 MG Oral TabletIndications:U rticaria TAKE 1 TABLET THREE TIMES A DAY NEEDED FOR ANXIETY 40 Tablet 27 03/06/20 23 025 Discontin ued(Refil l) documented as of this encounter (statuses as of 06/19/2024) Active Problems Problem Noted Date Diagnosed Date [...] , ft4 stable, VD 24--chg VD q2wks Ess09--ry cbc, bmp, fbs, lft, lipid x hdl [...] as of this encounter (statuses as of 06/19/2024) Resolved Problems Problem Noted Date Diagnosed Date [...] S/P laparoscopic cholecystectomy 12/25/2006 04/29/2013 Overview (12/04/2012): Oct: US;Mild nonspecific dilatation of the gallbladder. This may be related to fasting.---lap latonya Obesity, Class III, BMI 40-4 9.9 (morbid obesity) 04/23/2002 12/21/2016 Hypothyroid 04/06/2014 documented as of this encounter (statuses as of 06/19/2024) Immunizations Name Administration Dates Next Due COVID-19 mRNA, LNP-s, No Pre serve, 2-Dose Series (Major Aide) 01/08/2021,07/03/2020,06/12/2020 COVID-19, LNP-s, No Preserve , Shaq-sucrose, Ages 12+ (Pfizer) 09/23/2021 Covid-19, Mrna, Lnp-s, Pf, B ivalent, 30 Mcg, IM, 12 yrs and above (Major Aide) 09/06/2022 PPD 11/07/2010 Pneumococcal Conjugate Vacci ne, 20-valent (Tatnsbi79) 08/30/2022 Pneumococcal Polysaccharide PPV23 (Pneumovax) 12/23/2013 Seasonal [...] 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 Not on file Not on file documented as of this encounter Miscellaneous Notes * Telephone Encounter - Luis Angel Chi MD - 06/19/2024 11:34 AM EDT Signed Prescriptions: Disp Refills hydrOXYzine HCl 50 MG Oral Tablet 40 Tab*5 Sig: TAKE 1 TABLET THREE TIMES A DAY NEEDED FOR ANXIETY Authorizing Provider: LUIS ANGEL CHI * Telephone Encounter - Sherry Boothe [facility] - 06/19/2024 11:18 AM EDTPending Prescriptions: Disp Refills hydrOXYzine HCl 50 MG Oral Tablet 40 Tab*5 Sig: TAKE 1 TABLET THREE TIMES A DAY NEEDED FOR ANXIETY * Telephone Encounter - Sherry Boothe [facility] - 06/19/2024 11:18 AM EDT Pharmacists can only authorize Hydroxyzine refills when used for allergy or itching. Please approveif appropriate. Thank You, Sherry Boothe [facility] Clinical Pharmacist [facility] ([facility] [phone] 06/19/2024, 11:18 AM * Telephone Encounter - Norma Galvez [facility]Ph[facility] - 06/19/2024 11:11 AM EDT Did you pend patient's preferred pharmacy and medication before forwarding?yes Pharmacy: [facility]-[address]- [place] Pending Prescriptions: Disp Refills hydrOXYzine HCl 50 MG Oral Tablet 40 Tab*27 Sig: TAKE 1 TABLET THREE TIMES A DAY NEEDED FOR ANXIETY Last Visit: 01/03/2024 (in office), Visit date not found (telemedicine) Next Visit: 08/14/2024 If no future appointments scheduled, and last appointment is greater than a year ago, please schedule patient for a follow-up appointment Last date the medication was ordered: 03/06/2023 Is this request for a controlled substance?No Urine Drug Screen:No results found. However, due to the size of the patient record, not all encounters were searched. Please check Results Review for a complete set of results. Patient Phone Numbers Labs: Lab Results Component Value Date/Time CREAT 1.4 (H) 02/25/2024 08:18 AM CREAT 1.0 12/04/2019 09:06 AM CREAT 0.4 (L) 06/20/1996 11:27 AM POTASSIUM 4.5 02/25/2024 08:18 AM POTASSIUM 3.7 12/04/2019 09:06 AM POTASSIUM 4.2 06/20/1996 11:27 AM TSH 0.36 12/06/2023 09:11 AM TSH 1.24 12/04/2019 09:06 AM LDL 41 10/08/2023 11:14 AM LDL 55 09/23/2021 11:40 AM LDL 115 07/04/2019 11:36 AM LDL NOT APPLICABLE 07/04/2019 11:36 AM ALT 28 10/08/2023 11:14 AM ALT 90 (H) 12/04/2019 09:06 AM HGBA1C 6.1 (H) 05/30/2024 01:27 PM HGBA1C 8.0 (H) 12/15/2022 09:38 AM HGBA1C 7.2 (H) 12/04/2019 09:06 AM documented in this encounter Plan of Treatment Upcoming Encounters Date Type Department Care Team (Late st Contact Info) Description 08/14/2024 7:00 AM EDT [facility] [phone] Luis Angel Chi MD [address] [place] [phone] 08/19/2024 11:00 AM EDT Appointment Radiology, [address] [place] [address] 12/23/2024 10:20 AM EDT Office Visit Nephrology, [facility] [address] [facility] [place] [address] Vandana Ordonez MD [address] [place] [address] Scheduled Procedures Name Priority Associated Diagnoses Date/Ti [...] Additional history exists CKD HGB USE SMARTSET 57892 11/15/202411/15, 11/16/2023, 10/08/2023, Additional history exists CKD PHOS USE SMARTSET 43107 11/15/2024 11/16/2023 Influenza Vaccine (FLU shot) (Season [...] as of this encounter Visit Diagnoses Diagnosis Urticaria Urticaria, unspecified documented in this encounter Advance Directives * [...] Directives occurred with: Not Discussed Care Teams Instructor Of Education Relationship Specialty Start Date End Date Luis Angel Chi MD [address] [facility] [place] [id number] PCP - General Family Medicine 05/30/24 documented as of this encounter
--- OUTSIDE RECORDS SUMMARY | 2024-06-25 06:04 | External Medical Summary | Summary of Care ---
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 0 0 12/30/19 09 Active VITAMIN D 1000 UNIT PO CAPSIndications:Rafaela min D deficiency 2 capsule daily 30 Cap 11 01/17/20 10 Active Additional Information Patient taking differently:OralQWEEK, Reported on 06/18/2024 ONETOUCH DELICA LANCETS MISCIndications:Fami ly history of diabetes mellitus test up to 4 times a day as needed 1 Box 0 01/17/20 11 Active MULTI-VITAMINS PO TABSIndications:Post gastric surgery syndromes 1 TABLET DAILY 1 Tab 0 12/05/19 13 Active Blood Glucose Monitoring Suppl ([employer] ULTRA SYSTEM) W/DEVICE KITIndications:Hypog lycemia,Postgastric surgery syndromes Use up to four times a day as directed 1 Kit 0 10/05/19 16 Active Lactase 3000 UNIT Oral TabletIndications:wi th lots of dairy Take 1 Tablet by mouth in the morning and 1 Tablet at noon and 1 Tablet in the evening. Take with meals. Active Calcium Carbonate-Vitamin D 600-200 MG-UNIT CAPS Take by mouth once a week. Active Ferrous Sulfate (IRON) 325 (65 Fe) MG TABS Take by mouth daily. Active Docusate Sodium 100 MG Oral Capsule (Colace)Indications: S/P hemorrhoidectomy Take 1 Cap by mouth 2 [...] Active Dicyclomine HCl 20 MG Oral Tablet (Bentyl)Indications: Generalized abdominal pain Take 1 Tablet by mouth every 6 hours as needed (abdominal cramping or pain). 360 Tablet 1 06/19/19 24 Active OFERTALDIA Ultra In Vitro Strip (Glucose Blood)Indications:Ty pe 2 diabetes mellitus with hemoglobin A1c goal of less than 7.0% ([facility]) Test blood sugars up to 4 times daily E11.9 400 Strip 1 06/18/19 24 Active Benzonatate 100 MG Oral Capsule (Tessalon Perles)Indications:A cute cough Take 1 Capsule by mouth 3 [...] week Active Allopurinol 300 MG Oral Tablet (Zyloprim)Indication s:Gout of big toe TAKE 1 TABLET DAILY 90 Tablet 3 11/21/19 24 Active metFORMIN HCl ER 500 MG Oral Tablet Extended Release 24 Hour (Glucophage XR) TAKE 1 TABLET TWICE A DAY WITH MORNING AND EVENING MEALS 180 Tablet 3 11/25/19 24 Active Sertraline HCl 25 MG Oral Tablet (Zoloft)Indications: HEATHER (generalized anxiety disorder) TAKE 1 TABLET IN THE MORNING 90 Tablet 3 12/05/19 24 Active Furosemide 40 MG Oral Tablet (Lasix)Indications:H TN, goal below 140/90 TAKE 1 TABLET DAILY 90 Tablet 1 12/26/19 24 Active Lidocaine 4 % External Patch (Aspercreme)Indicati ons:Fall, initial encounter,Left-sided chest wall pain Apply patch to painful [...] Qnasl 80 MCG/ACT Nasal Aerosol Solution (Beclomethasone Dipropionate)Indicat ions:Allergic rhinitis, unspecified seasonality, unspecified trigger Administer 1 Puff into each nostril in the morning and 1 Puff before bedtime. 31.8 g 3 03/28/19 25 Active Albuterol Sulfate HFA 108 (90 Base) MCG/ACT Inhalation Aerosol SolutionIndications: Mild intermittent asthmatic bronchitis with acute exacerbation Inhale 2 Puffs by mouth every 4 hours as needed for Shortness of Breath or Wheezing. 18 g 1 04/02/19 25 Active Dexcom G6 Melter Assistant DeviceIndications:Ty pe 2 diabetes mellitus with hemoglobin A1c goal of less than 7.0% ([facility]) Use as directed. 1 Each 04/09/19 25 Active Additional Information Patient not taking.Reported on 06/18/2024 Dexcom G6 SensorIndications:Ty pe 2 diabetes mellitus with hemoglobin A1c goal of less than 7.0% ([facility]) Use as directed. 9 Each 04/09/19 Active Additional Information Patient not taking.Reported on 06/18/2024 Dexcom G6 TransmitterIndicatio ns:Type 2 diabetes mellitus with hemoglobin A1c goal of less than 7.0% ([facility]) Use as directed. 6 Each 04/09/19 Active Additional Information Patient not taking.Reported on 06/18/2024 Baclofen 10 MG Oral Tablet (Lioresal)Indication s:Primary localized osteoarthrosis of lower leg, unspecified laterality TAKE 1 TABLET THREE TIMES A DAY NEEDED FOR MUSCLE SPASMS 270 Tablet 04/18/19 25 Active traZODone HCl 100 MG Oral Tablet (Desyrel) Take 1 Tablet by mouth at bedtime. 90 Tablet 1 06/05/19 25 Active Ozempic (2 MG/DOSE) 8 MG/3ML Subcutaneous Solution Pen-injector (Semaglutide (2 MG/DOSE))Indications :Type 2 diabetes mellitus with hemoglobin A1c goal of less than 7.0% ([facility]) Inject 2 mg under the skin once a week. 9 mL 3 06/05/19 25 Active hydrOXYzine HCl 50 MG Oral TabletIndications:Ur ticaria TAKE 1 TABLET THREE TIMES A DAY NEEDED FOR ANXIETY 40 Tablet 5 06/20/19 25 Active documented as of this encounter (statuses as of 06/20/2024) Active Problems Problem Noted Date Diagnosed Date [...] , ft4 stable, VD 24--chg VD q2wks Wwl47--fb cbc, bmp, fbs, lft, lipid x hdl [...] as of this encounter (statuses as of 06/20/2024) Resolved Problems Problem Noted Date Diagnosed Date [...] as of this encounter (statuses as of 06/20/2024) Immunizations Name Administration Dates Next Due COVID-19 mRNA, LNP-s, No Pre serve, 2-Dose Series ([employer]) 01/08/2021,07/03/2020,06/12/2020 COVID-19, LNP-s, No Preserve , Shaq-sucrose, Ages 12+ (Pfizer) 09/23/2021 Covid-19, Mrna, Lnp-s, Pf, B ivalent, 30 Mcg, IM, 12 yrs and above (Pfizer) 09/06/2022 PPD 11/07/2010 Pneumococcal Conjugate Vacci ne, 20-valent ([id number]) 08/30/2022 Pneumococcal Polysaccharide PPV23 (Pneumovax) 12/23/2013 Seasonal Influenza Vac., MDV , IM, 0.5 mL (Fluzone) 12/09/2013,12/04/2012,02/19/2012,02/17 Seasonal Influenza, PF, 6 M & above, IM , (FluLaval or Fluzone) 12/01/2022,12/10/2020,12/04/2019,11/29,12/07/2017 Seasonal Influenza, Quadriva stewart, No Preserve, IM 11/27/2016,12/30/2014 TD, Preservative Free [...] 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 [place] [phone] Luis Angel Chi MD 21 [facility] [place] [address] 08/19/2024 11:00 AM EDT Appointment Rad[facility], [facility] [address] [facility] [phone] 12/23/2024 10:20 AM EDT Office Visit Nephrology, [address] [place] [address] Vandana Ordonez MD [address] [place] [address] Scheduled Procedures Name Priority Associated [...] Additional history exists CKD HGB USE SMARTSET 49293 11/15/202411/15, 11/16/2023, 10/08/2023, Additional history exists CKD PHOS USE SMARTSET 35367 11/15/2024 11/16/2023 Influenza Vaccine (FLU shot) (Season Ended) 2024 12/01/2022, 12/10/2020, 12/04/2019, Additional history exists HbA1c 11/30/2024 05/30/2024, 09/17, 02/26/2023, Additional history exists TSH 12/05/2024 12/06/2023, 10/19, 10/08/2023, Additional history exists Colonoscopy 08/18/2025 08/18/2020, 060 04/2020, 05/24/2017, Additional history exists Colorectal Cancer [...] Directives occurred with: Not Discussed Care Teams Oil Recovery Unit Operator Relationship Specialty Start Date End Date Luis Angel Chi MD [address] [place] [id number] PCP - General Family Medicine 05/30/24 documented as of this encounter
[2024-06-25] MEDS ORDERED: KETAMINE HCL 10MG/ML SYR ONE (06:38)
[2024-06-25] MEDS ORDERED: fentaNYL citrate PF 100 MCG/2 ML VIAL ONE ×2 (06:38→08:17)
[2024-06-25] MEDS ORDERED: PROPOFOL IV EMULSION 10 MG/ML 20 ML VIAL IV ONE (06:38)
[2024-06-25] MEDS ORDERED: SUGAMMADEX SODIUM 200 MG/2 ML VIAL IV ONE (06:38)
[2024-06-25] MEDS ORDERED: ROCURONIUM BROMIDE 10 MG/ML 5 ML VIAL IV ONE ×2 (06:38→09:06)
[2024-06-25] MEDS ORDERED: ONDANSETRON INJ 2 MG/ML 2 ML VIAL ONE (06:38)
[2024-06-25] MEDS ORDERED: MIDAZOLAM HCL 1 MG/ML 2ML VIAL ONE (06:38)
--- NOTE | 2024-06-25 06:45 | History & Physical Bridge Note ---
Date of Service June 25, 2024 History & Physical Bridge Note I have examined the patient, reviewed the History & Physical and in the interval since the performance of the History & Physical I have noted the following changes of clinical significance: no changes noted
[2024-06-25] MEDS: LR 15ML/HR IV SCH (06:48)
[2024-06-25] MEDS ORDERED: HYDROmorphone INJ 1 MG/ML SYRINGE IV PRN (07:30)
[2024-06-25] MEDS ORDERED: ePHEDrine sulfate 50 MG/ML AMP IV PRN ×2 (07:30→07:33)
[2024-06-25] MEDS ORDERED: ATROPINE SULFATE 0.1 MG/ML 10ML SYR IV PRN ×2 (07:30→07:33)
[2024-06-25] MEDS ORDERED: PROMETHAZINE HCL 6.25 MG in SODIUM CHLORIDE 0.9% 50 ML IV PRN (07:33)
[2024-06-25] MEDS: TRANEXAMIC ACID 1,000 MG **IV Pre-op IV SCH (07:34)
[2024-06-25] MEDS: ceFAZolin 2000MG 2,000 MG/15 ML SYR IV SCH ×2 (07:34→20:37)
[2024-06-25] MEDS ORDERED: HYDROmorphone INJ 1 MG/ML SYRINGE ONE (09:06)
[2024-06-25] MEDS ORDERED: LABETALOL HCL IV 5 MG/ML 20ML IV ONE ×4 (09:48→12:44)
[2024-06-25] MEDS ORDERED: ceFAZolin 330 MG/ML 1 GM VIAL ONE (12:10)
[2024-06-25] MEDS: ceFAZolin 2000MG 2,000 MG/15 ML SYR IV ONE (12:13)
[2024-06-25] MEDS: LIDOCAINE 1%/EPINEPHRINE 1:100,000 50 ML VIAL ONE ×2 (12:18)
[2024-06-25] MEDS: TRANEXAMIC ACID 1,000 MG **IV Intra-op IV SCH (13:07)
[2024-06-25] MEDS: BUPIVACAINE 0.25% PF 30 ML VIAL ONE (13:32)
[2024-06-25] MEDS ORDERED: GLYCOPYRROLATE 0.2 MG/ML VIAL ONE (13:58)
--- NOTE | 2024-06-25 14:22 | Post Operative Brief Note ---
PG Immediate Post Op with CF Date of Surgery June 25, 2024 Pre & Post Diagnosis Operation Date: 06/25/24 07:30 Pre-Op Diagnosis: Abdominal Pannus, Scar, Encounter for Cosmetic Surgery Post-Op Diagnosis: Abdominal Pannus, Scar, Encounter for Cosmetic Surgery I identified the patient and participated in the time-out.: Yes Procedure Operation Date: 06/25/24 07:30 Actual Procedures p Revision of Panniculectomy ([id number])(Not Applicable) - Romana Garza MD s Bilateral Brachioplasty (Cosmetic:1040-(Bilateral) - Romana Garza MD Surgeon Romana Garza MD Binder Fixer Brie Eubanks PA-C, Mona Spenec PA-c Estimated Blood Loss 75 Findings Consistent with Post-Op Diagnosis Specimens Specimen Description: A: Abdominal Pannus Drains Epstein Catheter and Scott-Vines Drain (x2 abdomen, x1 each arm)
--- NOTE | 2024-06-25 14:36 | Operative Report ---
PG Post Operative Report Pre & Post Diagnosis Operation Date: 06/25/24 07:30 Pre-Op Diagnosis: Abdominal Pannus, Scar, Encounter for Cosmetic Surgery Post-Op Diagnosis: Abdominal Pannus, Scar, Encounter for Cosmetic Surgery I identified the patient and participated in the time-out.: Yes Procedure Operation Date: 06/25/24 07:30 Actual Procedures p Revision of Panniculectomy ([id number])(Not Applicable) - Romana Garza MD s Bilateral Brachioplasty (Cosmetic:0831-3117)(Bilateral) - Romana Garza MD Surgeon Romana Garza MD Emt Basic Brie Eubanks PA-C, Mona Spence PA-c Estimated Blood Loss 75 Findings Consistent with Post-Op Diagnosis Specimens abdominal pannus Drains Px4 Anesthesia Type General Description of Procedure Risks, benefits, and alternatives of the procedure were explained to the patient who agreed and signed consent. She was identified and marked in the preoperative holding area both supine and standing she had history of prior panniculectomy, thigh lift, revision of mons pubis and thus had a panniculectomy scar, a scar from mons repair about 10 cm below the panniculectomy scar and thigh lift scars which had migrated below the groin crease. There was significant asymmetry of the small overhanging pannus and mons pubis. She was brought to the operating room where she was positioned supine and placed under general anesthesia without incident. Epstein catheter was placed. Surgical site was prepped and draped sterilely. A time-out procedure was performed. I reassessed my markings which included a lower horizontal abdominal incision with the midportion eight cm above the vulvar commissure which was just below the mons pubis incision. Incision was marked bilaterally to the ASIS. Superior panniculectomy scar was marked as well and there was noted to be significant asymmetry between these prior scars. I began by injecting 1% lidocaine with epinephrine along the planned incision. The lower abdominal incision was made using a 15-blade scalpel to incise epidermis and superficial dermis followed by electrocautery to incise deep dermis, subcutaneous fat, China's fascia down to the abdominal wall. Care was taken to bevel superiorly in order to avoid encountering the inguinal region. Electrocautery was used to undermine the skin through prior scar and up to the level of the umbilicus in order to maximize the amount of skin resection achieved. As the patient had prior panniculectomy and prior translocation of the umbilicus, with minimal excess skin above the umbilicus, I did not incise the umbilicus and thus this was a true infraumbilical panniculectomy. At this point, the bed was flexed, the skin flap was incised and the mid portion of the superior skin flap was inset above the mons pubis using 2-0 Vicryl suture. Skin flaps were marked for excision. A 15-blade scalpel was used to make these incisions and the incision was deepened through dermis, subcutaneous fat, China's fat using electrocautery. Prior to closure, a total of 10 mL of 0.25% Marcaine plain were injected into the fascia as well as along the incisions. 15 Azeri Olegario drains were placed in the wound bed and brought out through a separate stab incision in the mons pubis. The drains were sutured into place using 3-0 nylon. Wound closure was then begun lateral to medial using 2-0 Vicryl China's fascia sutures, 2-0 Vicryl deep dermal sutures, 2-0 PDO running superficial Quill suture, 3-0 Monocryl running subcuticular suture. Sylke dressing was applied. Attention was then turned to the brachioplasty portion of the procedure. Markings were reassessed. I considered whether to perform liposuction to the posterior aspect of the arm, but it appeared she mostly at skin laxity, minimal excess adiposity. Lesions were marked just above the bicipital groove and at the dome of the axilla, extending down the lateral chest wall to address skin laxity. 1% lidocaine with epinephrine was used to anesthetize the planned incisions. I began with the left arm. 15 blade scalpel made the upper incision through skin which was deepened using electrocautery through dermis, simultaneous fat, superficial fascia. Dissection of the skin flap was performed above the deep fascia leaving some subcutaneous tissue to protect the median antebrachial cutaneous nerve at the elbow. Similarly, more shallow dissection was performed in the axilla to protect the lymphatics and axillary structures. The anterior incision was then made down the lateral chest wall and this was elevated in similar fashion. The incision in the axilla was planned in an L- shape, similar to a Zuly incision. The apex of the flap was inset into the axillary dome using 0 Nurolon interrupted sutures to tack the superficial fascial system to the clavicopectoral fascia. Skin resection was then performed in segmental fashion in order to allow for maximal resection with minimal skin tension. This was performed by dividing the skin flaps in segments and tailor tacking these areas to allow for excision. The wound was then temporarily stapled in sequential fashion the arm and along the lateral chest wall. Once I was satisfied with the skin resection and temporary closure of the left arm, similar procedure was undertaken on the right side. Should be noted the patient had additional excess skin of the left axilla and excess skin of the right arm which was also noted by the patient preoperatively. Once I was satisfied with the skin resection on the left side, temporary closure was performed. LULY drains were placed into both wound beds prior to closure. They were sutured into place using 3-0 nylon suture. Simultaneous wound closure was then undertaken on both arms using 2-0 Vicryl superficial fascial sutures, 2-0 Vicryl deep dermal sutures, 3-0 PDO Quill suture, which was performed in 2 segments so as not to cross the axilla with one continuous running suture. 3-0 Monocryl suture was then run in the subcuticular plane, also in 2 segments. Sylke dressing was applied to both incisions. Xeroform was placed around the drains. Following the procedure, there was excellent symmetry and contour of both arms. Dry dressings followed by a compression garment placed to the arms, surgical bra to provide some compression to the lateral chest wall. Dry dressings and abdominal binder were placed to the abdomen. Procedure was tolerated well. The patient was awakened and transferred to the recovery room in satisfactory condition. Brie Eubanks PA-C and Mona Spence PA-C assisted during the procedure with hemostasis, retraction and simultaneous wound closure. I attest to the content of the Intraoperative Record and any orders documented therein. Any exceptions are noted below.
[2024-06-25] MEDS: fentaNYL citrate PF 100 MCG/2 ML VIAL IV PRN (14:53)
--- NOTE | 2024-06-25 15:22 | Anesthesiology Progress Note ---
Date of Service June 25, 2024 Anesthesia Post Procedure Vital Signs Vital Signs: Temp Pulse Resp BP Pulse Ox O2 Del Method O2 Flow Rate 06/25/24 15:15 64 15 162/77 H 99 Nasal Cannula 4 06/25/24 15:05 65 15 149/73 H 94 Room Air 06/25/24 14:55 64 16 145/79 H 94 Room Air 06/25/24 14:45 77 17 168/81 H 99 Oxymask 5 06/25/24 14:39 36.1 C L 76 17 163/89 H 99 Oxymask 8 06/25/24 06:26 36.7 C 74 18 132/66 96 Room Air Pain Intensity Generalized: Pain Intensity: 4 Transfer of Care Handoff Completed per policy Notes Mental Status: alert / awake / arousable and participated in evaluation Patient Amnestic to Procedure: Yes Nausea / Vomiting: adequately controlled Pain: adequately controlled Airway Patency, RR, SpO2: stable & adequate BP & HR: stable & adequate Hydration State: stable & adequate Anesthetic Complications: no major complications apparent and Pt Satisfied with anesthetic care
[2024-06-25] MEDS ORDERED: ACETAMINOPHEN 325 MG TAB PO PRN (16:11)
[2024-06-25] MEDS ORDERED: diphenhydrAMINE Capsule 25 MG CAP PO PRN (16:11)
[2024-06-25] MEDS ORDERED: diphenhydrAMINE 50 MG/ML VIAL IV PRN (16:11)
[2024-06-25] MEDS ORDERED: PROMETHAZINE 12.5 MG/50.5 ML BAG IV PRN (16:11)
[2024-06-25] MEDS: HYDROCODONE/ACETAMOPHEN 5/325MG TAB PO PRN ×2 (16:28→20:38)
[2024-06-25] MEDS: FLUTICASONE FUROATE 100MCG 14 PUFFS/INHALER INH SCH (17:18)
[2024-06-25 19:04] VITALS: RESP 16
[2024-06-25] MEDS: hydrOXYzine HCl 25 MG TAB PO SCH (20:37)
[2024-06-25] MEDS: metFORMIN HCL ER 500 MG TABCR PO SCH (20:37)
[2024-06-25] MEDS: traZODone HCL 100 MG TAB PO SCH (20:37)
[2024-06-26] MEDS: LEVOTHYROXINE SODIUM 125 MCG TABLET PO SCH (05:46)
[2024-06-26 07:41] VITALS: BP 135/71; PULSE 78; O2SAT 95
[2024-06-26 07:51] VITALS: TEMP 98.4
--- NOTE | 2024-06-26 07:55 | Surgery Progress Note ---
Date of Service June 26, 2024 Assessment & Plan (1) S/P panniculectomy: Plan: Doing well s/p revision panniculectomy and brachioplasty. D/C home later today after sanders removed and able to void. Office f/u tomorrow. Admission and Anticipated Discharge Date Admission Date: June 25, 2024 Subjective Bessie is resting in bed. Pain is tolerated. Sanders is still in place. Physical Exam Physical Exam: compression garments are all in place. drains with serosang output Results & Data Vital Signs (Past 12 Hours) Vital Signs Temp Pulse Resp BP Pulse Ox O2 Del Method 06/26/24 07:39 78 16 135/71 95 Room Air 06/26/24 03:00 37.0 C 76 16 138/75 96 Room Air 06/25/24 23:00 36.4 C L 70 16 147/76 H 96 Room Air PG Care Time/CCT Total # of Minutes Spent Total Time Spent with Patient: Total time spent is greater than 50% in coordination of care (as documented) at patient's floor/unit and/or counseling patient: Coding Level of Care Code 70523 Post Operative Follow-Up Diagnoses S/P panniculectomy Z98.890
[2024-06-26] MEDS: FUROSEMIDE 40 MG TAB PO SCH (08:37)
[2024-06-26] MEDS: FERROUS SULFATE 325 MG TAB PO SCH (08:37)
[2024-06-26] MEDS: PANTOprazole 40 MG TAB PO SCH (08:38)
[2024-06-26] MEDS: ENOXAPARIN INJ 40 MG/0.4 ML SYR SQ SCH (08:38)
[2024-06-26] MEDS: SERTRALINE HCL 50 MG TABLET PO SCH (08:39)
[2024-06-26] MEDS: ROSUVASTATIN CALCIUM 10 MG TAB PO SCH (08:39)
[2024-06-26] MEDS ORDERED: POTASSIUM GLUCONATE PO SCH (09:00)
[2024-06-26] MEDS: allopurinoL 300 MG TAB PO SCH (10:43)
--- NOTE | 2024-06-26 14:28 | Discharge Summary ---
Date of Service June 26, 2024 Admission HPI Per Admitting Provider Patient with history of significant weight gain and loss, rashes in skin folds of her pannus. She has history of prior panniculectomy and revision, history of medial thigh lift. Admission Exam Per Admitting Provider large abdominal and mons pubis pannus with asymmetry, excess skin of the upper arms Principal Diagnosis abdominal pannus Discharge Exam compression garments are all in place. drains with serosang output Discharge Data Allergies Allergy/AdvReac Type Severity Reaction Status Date / Time ibuprofen Allergy Intermediate FROM MED Verified 06/16/24 10:11 RECORD acetaminophen [From Percocet] Allergy Mild Hives Verified 06/25/24 06:01 adhesive tape Allergy Mild Rash Verified 06/25/24 06:01 latex Allergy Mild Rash Verified 06/25/24 06:01 morphine Allergy Mild Hives Verified 06/25/24 06:01 ondansetron [From Zofran] Allergy Mild Hives Verified 06/25/24 06:01 oxycodone Allergy Mild FROM MED Verified 06/25/24 06:01 RECORD Sulfa (Sulfonamide Allergy Mild Hives Verified 06/25/24 06:01 Antibiotics) terfenadine Allergy Mild FROM MED Verified 06/25/24 06:01 RECORD asprin Allergy Mild Hives Uncoded 06/25/24 06:01 Procedures Performed Operation Date: 06/25/24 07:30 Actual Procedures p Revision of Panniculectomy ([id number])(Not Applicable) - Romana Garza MD s Bilateral Brachioplasty (Cosmetic:[id number])(Bilateral) - Romana Garza MD Hospital Course (1) S/P panniculectomy: Patient presented to [facility] with history of abdominal pannus and excess skin of her arms. She was taken to the OR and underwent revision panniculectomy and brachioplasty. There were no intraoperative complications. She was taken to recovery and transferred to med/surg for observation. On POD#1, she was feeling well. She was tolerating a regular diet and ambulating. She was able to void after catheter was removed. On exam, her vitals were stable. Her incisions were CDI. Her drains had appropriate output. She was discharged home with instructions to follow-up in the office in one day. 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 Keep arms at shoulder height or below. __No driving __Driving allowed when you are off pain medications _x_Walking permitted __You should have help at home for ___ days __You may return to previous diet. DRESSINGS: __No dressings required _x_Keep dressings dry/in place until first office visit- keep compression garments on __Remove dressings ___ and leave dressings off __Apply ice ___ days __Remove dressings and reapply garment __Apply antibiotic ointment (Bacitracin, Neosporin, etc) to wounds 3-4 times/day for 10 days BATHING: _x_Keep dressings dry _x_Sponge bathing permitted __Showering permitted _x_No swimming, hot tubs or soaking in a tub MEDICATIONS: Resume previous medications unless instructed otherwise by your surgeon. _x_Do not use aspirin, Motrin, Advil or Ibuprofen as these may promote bleeding. Please use Tylenol. _x_Prescription(s) provided: pain medication was provided at your last office visit OTHER INSTRUCTIONS: _x_Record drain output 2-3 times per day SPECIAL CARE INSTRUCTIONS: * It is normal to have a mild fever after surgery. If your temperature is higher than 101.5 degrees F, please call the office at [phone]. * Constipation is a typical side effect of pain medication. An [id number] stool softener will help relieve this. * Leaking around surgical drains may occur and should not cause concern. Sometimes these drains become clogged. If this happens, remove the bulb and milk the clot out of the tube, then replace the bulb. * Drainage from wounds after liposuction is normal and should be expected. Garments will become soiled. You should protect furniture and bedding. This drainage should mostly subside within 2-3 days. Leave garments in place unless instructed to remove them. * If you have unusual drainage from a wound or are concerned you have an infection or have any questions or concerns, please call the office at [phone]. FOLLOW UP VISIT: If not already scheduled, please call the office, , when you return home after surgery to schedule an appointment to be seen in __1_ days. Pending Studies at Discharge: Yes Stand-Alone Forms: My [facility] [email or web address], Smoking Cessation Medications and DC Order Prescriptions: Continued potassium gluconate 600 mg (99 mg) tablet 600 mg PO DAILY dicyclomine 20 mg tablet 20 mg PO QID PRN (Reason: Diarrhea) polyethylene glycol 3350 [Miralax] 17 gram powder in packet 17 g PO DAILY PRN (Reason: Constipation) baclofen 10 mg tablet 10 mg PO TID PRN (Reason: Pain (Scale Score 1-3)) albuterol sulfate 90 mcg/actuation HFA aerosol inhaler 2 puff inhalation Q4H PRN (Reason: sob/wheezing) Ozempic 1 mg/dose (4 mg/3 mL) pen injector 3 mg subcut ONCE hydroxyzine HCl 50 mg tablet 50 mg PO HS omeprazole 20 mg capsule,delayed release(DR/EC) 20 mg PO QAM metformin 500 mg tablet extended release 24 hr 500 mg PO BID Qvar RediHaler 80 mcg/actuation HFA aerosol breath activated 1 inh inhalation BID pseudoephedrine HCl [Sudafed] 30 mg tablet 30 mg PO Q6H PRN (Reason: sinus congestion) multivitamin Tablet 1 tab PO DAILY lidocaine 4 % adhesive patch,medicated 1 patch topical DAILY PRN (Reason: Pain) docusate sodium 100 mg capsule 100 mg PO BID triamcinolone acetonide 0.5 % cream 1 applic topical BID PRN (Reason: Rash) ferrous sulfate 325 mg (65 mg iron) tablet 325 mg PO DAILY calcium carbonate-vitamin D3 600 mg-5 mcg (200 unit) capsule 1 cap PO DAILY lactase 3,000 unit tablet 3,000 unit PO TID Rx Instructions: administer with meals and/or snacks cholecalciferol (vitamin D3) 25 mcg (1,000 unit) tablet 25 mcg PO DAILY mecobalamin (vitamin B12) 1,000 mcg tablet,chewable 1,000 mcg PO DAILY acetaminophen [Tylenol Extra Strength] 500 mg tablet 500 mg PO Q6H PRN (Reason: Pain) furosemide 40 mg tablet 40 mg PO QAM sertraline [Zoloft] 25 mg tablet 25 mg PO DAILY trazodone 100 mg tablet 100 mg PO HS rosuvastatin 10 mg tablet 10 mg PO QAM levothyroxine 137 mcg tablet 125 mcg PO QAM allopurinol 300 mg tablet 300 mg PO QAM Probiotic 3 billion cell capsule 3,000 mmu cells PO DAILY Rx Instructions: administer with a meal hydrocodone-acetaminophen 5-325 mg tablet 1 tab PO Q4H PRN (Reason: pain) Qty: 18 0RF Rx Instructions: initial therapy Dr. Garza [id number] melatonin 10 mg Tablet 10 mg PO HS Discharge Orders: Discharge Order (Routine); Ordered 06/26/24 Ordered By: Brie Eubanks Admission Data Admit Date/Time: 06/25/24 14:43 Attending Provider: Romana Garza Admit Provider: Romana Garza Primary Care Provider: Sekou Shaw Other Interventions: Discharge Summary Assessment (RN) Last Done: 06/26/24 10:48 Coding Level of Care Code 52824 OBS Care - Discharge Diagnoses S/P panniculectomy Z98.890
== END 2024-06-26 11:42 | disposition home or self-care (01) ==
LOC: 3E 05:51 → ASU 05:51